=== PATIENT | female | born 1935 | race Caucasian/White ===

== ENCOUNTER 2016-11-03 18:03 | Inpatient (IN) | payer OTHER ==
[~2016-11-03] VITALS: Ht 188 cm; Wt 119.5 kg
[2016-11-03 19:59] LABS: HEMATOCRIT 40.4 % (36.0-46.0); MCH 29.3 PG (29.0-34.0); MCHC 32.7 G/DL (30.0-36.0); MCV 89.8 FL (83-99); MEAN PLAT.VOLUME 9.5 uM^3 (9.5-12.4); PLATELET COUNT 284 K/uL (156-360); RBC DIS.WIDTH-CV 13.7 % (11.8-14.6); RBC DIS.WIDTH-SD 44.9 % (39-53); WHITE BLOOD COUNT 11.9 K/uL (4.1-10.2)
[2016-11-03 20:10] LABS: CHLORIDE 102 mEq/L (99-109); POTASSIUM 3.8 mEq/L (3.7-5.4); SODIUM 139 mEq/L (136-147)
[2016-11-03 20:12] LABS: GLUCOSE 105 mg/dL (70-99)
[2016-11-03 20:13] LABS: ANION GAP 9 MEQ/L (2-14)
[2016-11-03 20:14] LABS: TOTAL BILIRUBIN 0.6 mg/dL (0.0-1.0)
[2016-11-03 20:16] LABS: ALKALINE PHOSPHATASE 97 IU/L (3-129); GFR ESTIMATE (CALCULATED) > 59 mL/min/
[2016-11-03 20:17] LABS: UREA NITROGEN (BUN) 14 mg/dL (9-23)
[2016-11-03 22:27] LABS: COLOR PALE YELLOW ((YELLOW)); GLUCOSE (STRIP) NEGATIVE; KETONES 40; LEUKOCYTES SMALL; NITRITE POSITIVE; PROTEIN (STRIP) NEGATIVE; SPECIFIC GRAVITY 1.005 (1.000-1.030); UROBILINOGEN 0.2 MG/DL (0.2-1.0)
[2016-11-03 22:28] LABS: ADD MIUA? YES; BILIRUBIN NEGATIVE; BLOOD MODERATE
[2016-11-03 22:38] LABS: BACTERIA 1+ /HPF; EPITHELIAL CELLS 1+ /HPF; RED BLOOD CELLS 0-5 /HPF (0-5); UCUL ADDED? NO
[2016-11-03 22:41] LABS: MUCUS TRACE /LPF
[2016-11-04 00:57] VITALS: BP 169/80
[2016-11-04 04:37] VITALS: BP 111/55
[2016-11-04 06:24] LABS: HEMATOCRIT 38.4 % (36.0-46.0); MCHC 31.8 G/DL (30.0-36.0); MCV 91.2 FL (83-99); MEAN PLAT.VOLUME 9.6 uM^3 (9.5-12.4); PLATELET COUNT 265 K/uL (156-360); RBC DIS.WIDTH-CV 13.8 % (11.8-14.6); RBC DIS.WIDTH-SD 46.5 % (39-53); RED BLOOD COUNT 4.21 M/uL (3.80-5.20); WHITE BLOOD COUNT 9.6 K/uL (4.1-10.2)
[2016-11-04 06:48] LABS: ANION GAP 5 MEQ/L (2-14); CHLORIDE 106 MEQ/L (99-109); GFR ESTIMATE (CALCULATED) > 59 mL/min/; GLUCOSE 99 mg/dL (70-99); POTASSIUM 3.9 MEQ/L (3.7-5.4); SAMPLE HEMOLYSIS CHECK 0; SAMPLE ICTERIC CHECK 0; SAMPLE LIPEMIA CHECK 0; SODIUM 140 MEQ/L (136-147); UREA NITROGEN (BUN) 11 mg/dL (9-23)
[2016-11-04 07:40] VITALS: BP 159/70
[2016-11-04 11:40] VITALS: BP 116/59
[2016-11-04 15:35] VITALS: BP 140/65
[2016-11-04] MEDS ORDERED: LIBRAX, CLI1 CAPSULE PO (16:26)
[2016-11-04] MEDS ORDERED: VITAMIN D31000 UNI2 PO (16:27)
[2016-11-04] MEDS ORDERED: VITAMIN B-12500 MC5 SL (16:29)
[2016-11-04] MEDS ORDERED: PROTONIX40 MG PO (16:30)
[2016-11-04] MEDS ORDERED: TYLENOL EXTRA500 MG PO (16:31)
[2016-11-04] MEDS ORDERED: ENSURE LIQUID237 ML PO (16:32)
[2016-11-04] MEDS ORDERED: CLARITIN,ALAVAR10 MG PO (16:32)
[2016-11-04] MEDS ORDERED: ARTIFICIAL TEAR1510 BOTH EYES (16:32)
[2016-11-04 19:30] VITALS: BP 141/72
[2016-11-05 08:03] VITALS: BP 119/78
[2016-11-05 11:15] VITALS: BP 131/65
[2016-11-05 15:30] VITALS: BP 158/67
[2016-11-05 20:16] VITALS: BP 143/68
[2016-11-05 23:54] VITALS: BP 146/70
[2016-11-06 04:02] VITALS: BP 128/60
[2016-11-06 09:10] VITALS: BP 129/68
[2016-11-06 18:28] VITALS: BP 130/60
[2016-11-06 23:38] VITALS: BP 128/68
[2016-11-07 05:38] LABS: POINT-OF-CARE METER ID UU14208750
[2016-11-07 07:05] VITALS: BP 122/61
[2016-11-07 12:19] LABS: POINT-OF-CARE METER ID UU14208750
[2016-11-07 15:03] VITALS: BP 124/68
[2016-11-07 20:53] VITALS: BP 140/85
[2016-11-07 23:35] VITALS: BP 122/67
[2016-11-08 08:00] VITALS: BP 120/64
== END 2016-11-08 12:36 | disposition home or self-care (01) | DRG 390 ==
LOC: EME 18:03 → 2EAST 23:02 → EDOF 23:02 → ENRESERV 23:08 → 2EAST 11-04 00:28 → ENRESERV 11-04 13:51 → 2EAST 11-04 13:51
PROVIDERS: Emergency Medicine; Surgery
DX: K56.60 Unspecified intestinal obstruction (principal); F03.90 Unspecified dementia, unspecified severity, without behavioral disturbance, psychotic disturbance, mood disturbance, and anxiety; N83.201 Unspecified ovarian cyst, right side; F41.9 Anxiety disorder, unspecified
CPT/HCPCS: 71010; 74000; 74177; 80048; 80053; 81003; 82948; 85027; 93005; 99281; 99285; J1650; J2060; S0028

== ENCOUNTER 2016-11-12 18:17 | Inpatient (IN) | payer OTHER ==
[~2016-11-12] VITALS: Ht 154.9 cm; Wt 44.0 kg
[~2016-11-12 18:17] MED LIST: ARTIFICIAL TEAR1510 BOTH EYES; CLARITIN,ALAVAR10 MG PO; ENSURE LIQUID237 ML PO; LIBRAX, CLI1 CAPSULE PO; PROTONIX40 MG PO; TYLENOL EXTRA500 MG PO; VITAMIN B-12500 MC5 SL; VITAMIN D31000 UNI2 PO
[2016-11-12 19:55] LABS: BASOPHIL COUNT 0.1 K/uL (0-0.1); EOSINOPHIL (%) 1.1 % (0-5); EOSINOPHIL COUNT 0.1 K/uL (0-0.3); HEMATOCRIT 39.9 % (36.0-46.0); IMMATURE GRANULOCYTE (%) 0.3 % (0.0-0.7); INSTRUMENT ABS NEUTROPHIL CT 7.4 K/uL; LYMPHOCYTE COUNT 2.1 K/uL (1.0-2.8); MCH 28.9 PG (29.0-34.0); MCHC 32.1 G/DL (30.0-36.0); MCV 90.1 FL (83-99); MEAN PLAT.VOLUME 9.3 uM^3 (9.5-12.4); MONOCYTE (%) 10.8 % (3-12); MONOCYTE COUNT 1.2 K/uL (0-0.8); NEUTROPHIL (%) 68.4 % (45-76); NEUTROPHIL COUNT 7.4 K/uL (1.8-6.4); PLATELET COUNT 300 K/uL (156-360); RBC DIS.WIDTH-CV 13.5 % (11.8-14.6); RBC DIS.WIDTH-SD 44.3 % (39-53); RED BLOOD COUNT 4.43 M/uL (3.80-5.20); WHITE BLOOD COUNT 10.9 K/uL (4.1-10.2)
[2016-11-12 20:08] LABS: CHLORIDE 100 mEq/L (99-109); POTASSIUM 3.7 mEq/L (3.7-5.4); SODIUM 138 mEq/L (136-147)
[2016-11-12 20:10] LABS: GLUCOSE 106 mg/dL (70-99)
[2016-11-12 20:11] LABS: ANION GAP 8 MEQ/L (2-14); INTER. NORMALIZED RATIO 1.1; PROTHROMBIN TIME 12.2 SEC (10.2-12.9)
[2016-11-12 20:13] LABS: GFR ESTIMATE (CALCULATED) > 59 mL/min/; PTT 29.2 SEC (25-37)
[2016-11-12 20:14] LABS: UREA NITROGEN (BUN) 11 mg/dL (9-23)
[2016-11-12] MEDS ORDERED: PERCOCET 5/31 TABLET PO (20:14)
[2016-11-12 20:25] LABS: ADD MIUA? YES; BILIRUBIN NEGATIVE; BLOOD SMALL; COLOR YELLOW ((YELLOW)); GLUCOSE (STRIP) NEGATIVE; KETONES NEGATIVE; LEUKOCYTES LARGE; PROTEIN (STRIP) NEGATIVE; SPECIFIC GRAVITY 1.009 (1.000-1.030); UROBILINOGEN 0.2 MG/DL (0.2-1.0)
[2016-11-12 21:03] LABS: BACTERIA 4+ /HPF; EPITHELIAL CELLS RARE /HPF; MUCUS 1+ /LPF; RED BLOOD CELLS 0-5 /HPF (0-5); UCUL ADDED? YES; WHITE BLOOD CELLS TNTC /HPF (0-5)
[2016-11-12 21:04] LABS: NITRITE POSITIVE
[2016-11-12] MEDS ORDERED: CENTRUM SILVER1 EAC3 PO (23:28)
[2016-11-13] VITALS (7 sets, daily range): BP systolic 115–150; BP diastolic 63–71
[2016-11-13 03:58] LABS: C DIFF TOXIN POSITIVE (NEGATIVE)
[2016-11-13 03:59] LABS: PROBE CHECK PASS
[2016-11-13 20:26] LABS: POINT-OF-CARE METER ID UU14208750
[2016-11-13 21:31] LABS: POINT-OF-CARE METER ID UU14208750
[2016-11-13 22:05] LABS: POINT-OF-CARE METER ID UU14208750
[2016-11-14 06:49] LABS: BASOPHIL COUNT 0.1 K/uL (0-0.1); EOSINOPHIL (%) 2.5 % (0-5); EOSINOPHIL COUNT 0.2 K/uL (0-0.3); HEMATOCRIT 35.4 % (36.0-46.0); IMMATURE GRANULOCYTE (%) 0.5 % (0.0-0.7); INSTRUMENT ABS NEUTROPHIL CT 4.2 K/uL; LYMPHOCYTE COUNT 1.4 K/uL (1.0-2.8); MCH 30.9 PG (29.0-34.0); MCHC 34.2 G/DL (30.0-36.0); MCV 90.5 FL (83-99); MEAN PLAT.VOLUME 9.4 uM^3 (9.5-12.4); MONOCYTE (%) 9.6 % (3-12); MONOCYTE COUNT 0.6 K/uL (0-0.8); NEUTROPHIL (%) 65.1 % (45-76); NEUTROPHIL COUNT 4.2 K/uL (1.8-6.4); PLATELET COUNT 277 K/uL (156-360); RBC DIS.WIDTH-CV 13.3 % (11.8-14.6); RED BLOOD COUNT 3.91 M/uL (3.80-5.20); WHITE BLOOD COUNT 6.5 K/uL (4.1-10.2)
[2016-11-14 07:30] VITALS: BP 139/66
[2016-11-14 07:35] LABS: ANION GAP 6 MEQ/L (2-14); CHLORIDE 106 MEQ/L (99-109); GFR ESTIMATE (CALCULATED) > 59 mL/min/; GLUCOSE 105 mg/dL (70-99); POTASSIUM 3.9 MEQ/L (3.7-5.4); SAMPLE HEMOLYSIS CHECK 0; SAMPLE ICTERIC CHECK 0; SAMPLE LIPEMIA CHECK 0; SODIUM 138 MEQ/L (136-147); UREA NITROGEN (BUN) 7 mg/dL (9-23)
[2016-11-14 07:40] VITALS: BP 143/65
[2016-11-14 12:12] LABS: POINT-OF-CARE METER ID UU14208750
[2016-11-14 15:40] VITALS: BP 133/71
[2016-11-14 16:24] LABS: POINT-OF-CARE METER ID UU14208750
[2016-11-15 00:22] VITALS: BP 122/60
[2016-11-15 06:46] LABS: POINT-OF-CARE METER ID UU14208750
[2016-11-15 06:46] LABS: BASOPHIL COUNT 0.1 K/uL (0-0.1); EOSINOPHIL (%) 3.3 % (0-5); EOSINOPHIL COUNT 0.2 K/uL (0-0.3); HEMATOCRIT 37.6 % (36.0-46.0); IMMATURE GRANULOCYTE (%) 0.4 % (0.0-0.7); INSTRUMENT ABS NEUTROPHIL CT 2.9 K/uL; LYMPHOCYTE COUNT 1.6 K/uL (1.0-2.8); MCH 30.5 PG (29.0-34.0); MCHC 33.8 G/DL (30.0-36.0); MCV 90.4 FL (83-99); MEAN PLAT.VOLUME 9.4 uM^3 (9.5-12.4); MONOCYTE (%) 12.3 % (3-12); MONOCYTE COUNT 0.7 K/uL (0-0.8); NEUTROPHIL (%) 53.1 % (45-76); NEUTROPHIL COUNT 2.9 K/uL (1.8-6.4); PLATELET COUNT 295 K/uL (156-360); RBC DIS.WIDTH-CV 13.4 % (11.8-14.6); RED BLOOD COUNT 4.16 M/uL (3.80-5.20); WHITE BLOOD COUNT 5.5 K/uL (4.1-10.2)
[2016-11-15 07:19] LABS: ANION GAP 5 MEQ/L (2-14); CHLORIDE 112 MEQ/L (99-109); GFR ESTIMATE (CALCULATED) > 59 mL/min/; GLUCOSE 89 mg/dL (70-99); POTASSIUM 3.6 MEQ/L (3.7-5.4); SAMPLE HEMOLYSIS CHECK 0; SAMPLE ICTERIC CHECK 0; SAMPLE LIPEMIA CHECK 0; UREA NITROGEN (BUN) 3 mg/dL (9-23)
[2016-11-15 07:27] LABS: SODIUM 145 MEQ/L (136-147)
[2016-11-15 07:55] VITALS: BP 117/68
[2016-11-15 16:58] VITALS: BP 103/58
[2016-11-16] VITALS: BP 134/69
[2016-11-16 06:06] LABS: POINT-OF-CARE METER ID UU14208750
[2016-11-16 07:05] VITALS: BP 116/86
[2016-11-16] MEDS ORDERED: METRONIDAZOLE500 MG PO (10:11)
== END 2016-11-16 11:30 | disposition home or self-care (01) | DRG 389 ==
LOC: EME 18:17 → 2EAST 11-13 00:48 → EDOF 11-13 00:48 → ENRESERV 11-13 00:51 → 2EAST 11-13 01:51
PROVIDERS: Emergency Medicine; Hospitalist; Student in an Organized Health Care Education/Training Program
DX: K56.60 Unspecified intestinal obstruction (principal); A04.7 Enterocolitis due to Clostridium difficile; N39.0 Urinary tract infection, site not specified; K62.3 Rectal prolapse; N99.3 Prolapse of vaginal vault after hysterectomy; N28.1 Cyst of kidney, acquired; J98.11 Atelectasis; D17.71 Benign lipomatous neoplasm of kidney; Z87.440 Personal history of urinary (tract) infections; Z68.1 Body mass index [BMI] 19.9 or less, adult
CPT/HCPCS: 74020; 74177; 74250; 80048; 81003; 82948; 85025; 85610; 85730; 87040; 87077; 87086 GA; 87186; 87493; 99281; 99285; J0696; J7030; J7042; J7050; S0028; S0030

== ENCOUNTER 2016-12-06 08:41 | Emergency (ER) | payer OTHER ==
[~2016-12-06] VITALS: Ht 162.6 cm; Wt 42.4 kg
[~2016-12-06 08:41] MED LIST changes: +CENTRUM SILVER1 EAC3 PO; +METRONIDAZOLE500 MG PO; +PERCOCET 5/31 TABLET PO
[2016-12-06 09:58] LABS: MCH 29.7 PG (29.0-34.0); MCHC 33.3 G/DL (30.0-36.0); MCV 89.2 FL (83-99); RBC DIS.WIDTH-CV 13.5 % (11.8-14.6); RBC DIS.WIDTH-SD 44.4 % (39-53); RED BLOOD COUNT 4.71 M/uL (3.80-5.20); WHITE BLOOD COUNT 6.9 K/uL (4.1-10.2)
[2016-12-06 10:05] LABS: CHLORIDE 103 mEq/L (99-109); POTASSIUM 3.8 mEq/L (3.7-5.4); SODIUM 141 mEq/L (136-147)
[2016-12-06 10:07] LABS: GLUCOSE 132 mg/dL (70-99)
[2016-12-06 10:09] LABS: ANION GAP 13 MEQ/L (2-14); TOTAL BILIRUBIN 0.5 mg/dL (0.0-1.0)
[2016-12-06 10:11] LABS: ALKALINE PHOSPHATASE 100 IU/L (3-129); GFR ESTIMATE (CALCULATED) > 59 mL/min/
[2016-12-06 10:12] LABS: UREA NITROGEN (BUN) 26 mg/dL (9-23)
[2016-12-06 10:50] LABS: ANISOCYTOSIS 1+; BAND NEUTROPHILS 50.4 % (0-8.0); BASOPHILS 0.9 %; EOSINOPHIL ABS CT 0; INSTRUMENT ABS NEUTROPHIL CT 4.4 K/uL; LYMPHOCYTES 8.9 % (15.0-45.0); MACROCYTES 1+; MEAN PLAT.VOLUME 10.1 uM^3 (9.5-12.4); METAMYELOCYTES 0.9 %; PLAT.SUFFICIENCY ADEQUATE; SEG.NEUTROPHILS 22.1 % (46.0-76.0)
[2016-12-06 11:00] LABS: PLATELET COUNT 197 K/uL (156-360)
[2016-12-06 13:41] LABS: ADD MIUA? YES; BILIRUBIN NEGATIVE; BLOOD SMALL; COLOR AMBER ((YELLOW)); GLUCOSE (STRIP) NEGATIVE; KETONES 20; LEUKOCYTES SMALL; NITRITE POSITIVE; PROTEIN (STRIP) NEGATIVE; SPECIFIC GRAVITY 1.023 (1.000-1.030); UROBILINOGEN 0.2 MG/DL (0.2-1.0)
[2016-12-06 14:10] LABS: BACTERIA 3+ /HPF; EPITHELIAL CELLS 1+ /HPF; HYALINE CASTS 30-40 /LPF; MUCUS 4+ /LPF; UCUL ADDED? YES; WHITE BLOOD CELLS 30-40 /HPF (0-5)
[2016-12-06] MEDS ORDERED: CIPRO500 MG PO (15:13)
[2016-12-06] MEDS ORDERED: ZOFRAN ODT4 MG PO (15:13)
[2016-12-06 16:09] VITALS: BP 106/59
== END 2016-12-06 16:14 | disposition home or self-care (01) ==
LOC: EME 08:41
PROVIDERS: Emergency Medicine
DX: N39.0 Urinary tract infection, site not specified (principal); K52.9 Noninfective gastroenteritis and colitis, unspecified; Z90.710 Acquired absence of both cervix and uterus; F03.90 Unspecified dementia, unspecified severity, without behavioral disturbance, psychotic disturbance, mood disturbance, and anxiety
CPT/HCPCS: 80053; 81003; 85025; 87077; 87086; 87186; 87493; 99281; 99285; J2405; J7030